=== PATIENT | male | born 1965 | race Caucasian/White ===

== ENCOUNTER 2022-08-29 08:05 | Outpatient (CLI) | payer OTHER, SELFPAY ==
[2022-08-29 14:17] LABS: Alanine Aminotransferase* 44 U/L (4-50); Aspartate Amino Transferase* 45 U/L (12-35); Cholesterol* 129 mg/dL (90-199); Creatine Kinase* 120 U/L (54-186); HDL Cholesterol* 86 mg/dL (>=40); LDL Cholesterol Calculated 32 mg/dL (<100); Triglycerides* 54 mg/dL (40-149)
== END 2022-08-29 08:06 | disposition home or self-care (01) ==
LOC: LONREF 08:06
PROVIDERS: PCP Family Medicine; Visit Provider Family Medicine
DX: I25.10 Atherosclerotic heart disease of native coronary artery without angina pectoris (principal); Z72.0 Tobacco use; Z82.49 Family history of ischemic heart disease and other diseases of the circulatory system
CPT/HCPCS: 80061; 82550; 84450; 84460